=== PATIENT | female | born 1975 | race Caucasian/White ===

== ENCOUNTER → 2016-04-12 | Outpatient (CLI) | payer OTHER | LOC: RAD 16:33 | DX: M54.5 Low back pain (principal); M53.3 Sacrococcygeal disorders, not elsewhere classified ==

== ENCOUNTER → 2017-11-30 | Outpatient (CLI) | payer BC ==
[2017-11-30 15:07] LABS: EOS # 0.3 (0.04-0.40); EOS % 3.8 % (1.0-5.0); HEMATOCRIT 39.1 % (37.0-47.0); LYMPH# 2.1 (1.50-4.00); MEAN CELL VOLUME 88 fl (78-100); MEAN CORPUSCULAR HEMOGLOBIN 29 pg (27-31); MEAN CORPUSCULAR HGB CONC 33 g/dL (33-37); MONO # 0.6 (0.20-0.80); NEU # 5.9 (1.40-6.50); PLATELET COUNT 277 K/mm3 (130-400); RED BLOOD COUNT 4.45 M/mm3 (4.10-5.30); RED CELL DISTRIBUTION WIDTH 12.9 % (11.5-14.5); WHITE BLOOD COUNT 8.9 K/mm3 (4.8-10.8)
[2017-11-30 23:30] LABS: HEPATITIS B CORE AB TOTAL Negative (()); HEPATITIS B SURFACE ANTIGEN Negative (Negative); HEPATITIS C VIRUS ANTIBODY Negative (Negative)
== END ==
LOC: LAB 14:33
PROVIDERS: Physician Assistant
DX: Z79.899 Other long term (current) drug therapy (principal)

== ENCOUNTER → 2018-09-24 | Outpatient (CLI) | payer BC ==
[2018-09-24 11:09] LABS: BASO # 0.1 (0.02-0.10); EOS # 0.2 (0.04-0.40); EOS % 2.9 % (1.0-5.0); HEMATOCRIT 39.1 % (37.0-47.0); HEMOGLOBIN 12.5 g/dL (12.5-16.0); LYMPH# 1.6 (1.50-4.00); MEAN CELL VOLUME 91 fl (78-100); MEAN CORPUSCULAR HEMOGLOBIN 29 pg (27-31); MEAN CORPUSCULAR HGB CONC 32 g/dL (33-37); MEAN PLATELET VOLUME 9.1 fl (7.4-10.4); MONO # 0.5 (0.20-0.80); NEU # 3.7 (1.40-6.50); PLATELET COUNT 333 K/mm3 (130-400); RED BLOOD COUNT 4.31 M/mm3 (4.10-5.30); RED CELL DISTRIBUTION WIDTH 13.2 % (11.5-14.5); WHITE BLOOD COUNT 6.1 K/mm3 (4.8-10.8)
[2018-09-24 11:18] LABS: POTASSIUM 4.2 mmol/L (3.5-5.1)
[2018-09-24 11:19] LABS: ALBUMIN 3.9 g/dL (3.5-5.0)
[2018-09-24 11:20] LABS: CALCIUM 9.3 mg/dL (8.3-10.5)
[2018-09-24 11:21] LABS: TOTAL PROTEIN 7.6 g/dL (6.4-8.3)
[2018-09-24 11:23] LABS: TOTAL BILIRUBIN 0.4 mg/dL (0.2-1.2)
== END ==
LOC: LAB 10:59
PROVIDERS: Family Medicine
DX: Z00.00 Encounter for general adult medical examination without abnormal findings (principal); E78.5 Hyperlipidemia, unspecified

== ENCOUNTER → 2019-07-02 | Outpatient (CLI) | payer BC | LOC: LAB 09:27 | DX: N39.0 Urinary tract infection, site not specified (principal) ==

== ENCOUNTER 2019-07-29 08:19 | Emergency (ER) | payer BC ==
[2019-07-29] MEDS ORDERED: THE MEDICINE SH PO (08:39)
[2019-07-29] MEDS ORDERED: APRI 0.15 MG-0.1 TAB PO (08:39)
[2019-07-29] MEDS ORDERED: FLUOXETINE40 MG PO (08:39)
[2019-07-29 09:03] LABS: EOS # 0.3 (0.04-0.40); EOS % 3.9 % (1.0-5.0); HEMATOCRIT 37.9 % (37.0-47.0); HEMOGLOBIN 11.9 g/dL (12.5-16.0); LYMPH# 1.5 (1.50-4.00); MEAN CELL VOLUME 91 fl (78-100); MEAN CORPUSCULAR HEMOGLOBIN 28 pg (27-31); MEAN CORPUSCULAR HGB CONC 31 g/dL (33-37); MEAN PLATELET VOLUME 9.5 fl (7.4-10.4); MONO # 0.8 (0.20-0.80); NEU # 4.7 (1.40-6.50); PLATELET COUNT 293 K/mm3 (130-400); RED BLOOD COUNT 4.19 M/mm3 (4.10-5.30); WHITE BLOOD COUNT 7.4 K/mm3 (4.8-10.8)
[2019-07-29 09:05] LABS: URINE APPEARANCE HAZY; URINE BILIRUBIN NEGATIVE (NEGATIVE); URINE BLOOD NEGATIVE (NEGATIVE); URINE COLOR YELLOW; URINE GLUCOSE NEGATIVE (NEGATIVE); URINE KETONE NEGATIVE (NEGATIVE); URINE LEUKOCYTE ESTERASE NEGATIVE (NEGATIVE); URINE NITRATE NEGATIVE (NEGATIVE); URINE PROTEIN(semi-quant) NEGATIVE (NEGATIVE); URINE UROBILINOGEN NORMAL (NORMAL)
[2019-07-29 09:06] LABS: URINE MUCUS PRESENT (NOT PRESENT); URINE WBC 0-1 /hpf (0-3)
[2019-07-29 09:07] LABS: POTASSIUM 3.8 mmol/L (3.5-5.1)
[2019-07-29 09:08] LABS: CALCIUM 8.8 mg/dL (8.3-10.5)
[2019-07-29 09:09] LABS: TOTAL PROTEIN 6.9 g/dL (6.4-8.3)
[2019-07-29 09:11] LABS: TOTAL BILIRUBIN 0.4 mg/dL (0.2-1.2)
[2019-07-29] MEDS ORDERED: IBU800 M1 PO (11:06)
[2019-07-29] MEDS ORDERED: NORCO 325 MG-51 TA1 PO (11:06)
[2019-07-29] MEDS ORDERED: ZOFRAN4 M2 PO (11:06)
[2019-07-29 11:09] VITALS: BP 152/69
== END 2019-07-29 11:25 | disposition home or self-care (01) ==
LOC: ED 08:19
PROVIDERS: Nurse Practitioner Primary Care
DX: N20.0 Calculus of kidney (principal); F32.9 Major depressive disorder, single episode, unspecified; Z88.0 Allergy status to penicillin; Z88.2 Allergy status to sulfonamides
CPT/HCPCS: J1885; J2270; J2405; Q9967

== ENCOUNTER → 2019-12-17 | Outpatient (CLI) | payer BC ==
[~2019-12-17] MED LIST: APRI 0.15 MG-0.1 TAB PO; FLUOXETINE40 MG PO; IBU800 M1 PO; NORCO 325 MG-51 TA1 PO; THE MEDICINE SH PO; ZOFRAN4 M2 PO
== END ==
LOC: LAB 10:58
DX: R51.9 Headache, unspecified (principal); R53.83 Other fatigue; Z20.828 Contact with and (suspected) exposure to other viral communicable diseases

== ENCOUNTER → 2021-02-22 | Outpatient (CLI) | payer BC ==
[2021-02-22 18:04] LABS: URINE APPEARANCE CLEAR; URINE BILIRUBIN NEGATIVE (NEGATIVE); URINE BLOOD NEGATIVE (NEGATIVE); URINE COLOR YELLOW; URINE GLUCOSE NEGATIVE (NEGATIVE); URINE KETONE NEGATIVE (NEGATIVE); URINE LEUKOCYTE ESTERASE NEGATIVE (NEGATIVE); URINE MUCUS PRESENT (NOT PRESENT); URINE NITRATE NEGATIVE (NEGATIVE); URINE PROTEIN(semi-quant) TRACE (NEGATIVE); URINE UROBILINOGEN NORMAL (NORMAL); URINE WBC 0-1 /hpf (0-3)
== END ==
LOC: LAB 17:01
PROVIDERS: Family Medicine
DX: N92.5 Other specified irregular menstruation (principal)

== ENCOUNTER → 2021-04-05 | Outpatient (CLI) | payer BC | LOC: LAB 17:27 | DX: J02.9 Acute pharyngitis, unspecified (principal) ==

== ENCOUNTER → 2023-08-14 | Outpatient (CLI) | payer BC ==
[2023-08-14 14:22] LABS: BASO # 0.04 K/mm3 (0.02-0.10); EOS # 0.37 K/mm3 (0.04-0.40); EOS % 3.8 % (1.0-5.0); HEMATOCRIT 36.4 % (37.0-47.0); HEMOGLOBIN 11.8 g/dL (12.5-16.0); LYMPH# 1.89 K/mm3 (1.50-4.00); MEAN CELL VOLUME 89 fl (78-100); MEAN CORPUSCULAR HEMOGLOBIN 29 pg (27-31); MEAN CORPUSCULAR HGB CONC 32 g/dL (33-37); MEAN PLATELET VOLUME 8.9 fl (7.4-10.4); MONO # 0.71 K/mm3 (0.20-0.80); PLATELET COUNT 286 K/mm3 (130-400); RED BLOOD COUNT 4.09 M/mm3 (4.10-5.30); RED CELL DISTRIBUTION WIDTH 14.6 % (11.5-14.5); WHITE BLOOD COUNT 9.6 K/mm3 (4.8-10.8)
[2023-08-14 14:31] LABS: ALBUMIN 3.9 g/dL (3.5-5.0)
[2023-08-14 14:32] LABS: CALCIUM 9.5 mg/dL (8.3-10.5)
[2023-08-14 14:33] LABS: TOTAL PROTEIN 6.9 g/dL (6.4-8.3)
[2023-08-14 14:35] LABS: TOTAL BILIRUBIN 0.2 mg/dL (0.2-1.2)
== END ==
LOC: LAB 14:06
PROVIDERS: Family Medicine
DX: N92.1 Excessive and frequent menstruation with irregular cycle (principal); E78.5 Hyperlipidemia, unspecified; E03.9 Hypothyroidism, unspecified; E55.9 Vitamin D deficiency, unspecified

== ENCOUNTER → 2023-11-30 | Outpatient (CLI) | payer OTHER | LOC: RAD 10:31 | DX: R05.9 Cough, unspecified (principal) ==

== ENCOUNTER → 2023-12-10 | Outpatient (CLI) | payer OTHER ==
[2023-12-10 13:46] LABS: BASO # 0.07 K/mm3 (0.02-0.10); EOS # 1.15 K/mm3 (0.04-0.40); HEMATOCRIT 41.8 % (37.0-47.0); HEMOGLOBIN 13.4 g/dL (12.5-16.0); LYMPH# 2.34 K/mm3 (1.50-4.00); MEAN CELL VOLUME 94 fl (78-100); MEAN CORPUSCULAR HEMOGLOBIN 30 pg (27-31); MEAN CORPUSCULAR HGB CONC 32 g/dL (33-37); MONO # 1.06 K/mm3 (0.20-0.80); NEU # 8.08 K/mm3 (1.40-6.50); PLATELET COUNT 270 K/mm3 (130-400); RED BLOOD COUNT 4.46 M/mm3 (4.10-5.30); RED CELL DISTRIBUTION WIDTH 13.4 % (11.5-14.5); WHITE BLOOD COUNT 12.7 K/mm3 (4.8-10.8)
== END ==
LOC: LAB 13:36
PROVIDERS: Family Medicine
DX: R06.00 Dyspnea, unspecified (principal)

== ENCOUNTER → 2023-12-17 | Outpatient (CLI) | payer OTHER ==
[2023-12-17 18:35] LABS: BASO # 0.08 K/mm3 (0.02-0.10); EOS # 1.69 K/mm3 (0.04-0.40); EOS % 12.4 % (1.0-5.0); HEMOGLOBIN 13.2 g/dL (12.5-16.0); LYMPH# 2.93 K/mm3 (1.50-4.00); MEAN CELL VOLUME 92 fl (78-100); MEAN CORPUSCULAR HEMOGLOBIN 31 pg (27-31); MEAN CORPUSCULAR HGB CONC 33 g/dL (33-37); MEAN PLATELET VOLUME 9.1 fl (7.4-10.4); NEU # 8.06 K/mm3 (1.40-6.50); PLATELET COUNT 298 K/mm3 (130-400); RED BLOOD COUNT 4.33 M/mm3 (4.10-5.30); RED CELL DISTRIBUTION WIDTH 13.3 % (11.5-14.5); WHITE BLOOD COUNT 13.7 K/mm3 (4.8-10.8)
== END ==
LOC: LAB 18:23
PROVIDERS: Nurse Practitioner Family
DX: J06.9 Acute upper respiratory infection, unspecified (principal)

== ENCOUNTER 2023-12-21 16:20 | Emergency (ER) | payer OTHER ==
[~2023-12-21 16:20] MED LIST changes: -PRILOSEC 20MG20 MG PO
[2023-12-21] MEDS ORDERED: Iohexol 350 - 100 ML VIAL IV ONE (16:28)
[2023-12-21] MEDS ORDERED: PRILOSEC 20MG20 MG PO (17:38)
[2023-12-21] MEDS ORDERED: Triamcinolone 40 MG/ML 1 ML VIAL IM ONE (17:45)
[2023-12-21 17:58] VITALS: BP 113/87
== END 2023-12-21 18:33 | disposition home or self-care (01) ==
LOC: ED 16:20
DX: R79.89 Other specified abnormal findings of blood chemistry (principal); J98.4 Other disorders of lung; K21.9 Gastro-esophageal reflux disease without esophagitis
CPT/HCPCS: J3301; Q9967

== ENCOUNTER → 2023-12-21 | Outpatient (CLI) | payer OTHER ==
[~2023-12-21] MED LIST changes: +PRILOSEC 20MG20 MG PO
[2023-12-21 12:34] LABS: BASO # 0.08 K/mm3 (0.02-0.10); EOS # 1.36 K/mm3 (0.04-0.40); EOS % 15.2 % (1.0-5.0); HEMATOCRIT 41.5 % (37.0-47.0); HEMOGLOBIN 13.6 g/dL (12.5-16.0); LYMPH# 1.67 K/mm3 (1.50-4.00); MEAN CELL VOLUME 93 fl (78-100); MEAN CORPUSCULAR HEMOGLOBIN 31 pg (27-31); MEAN CORPUSCULAR HGB CONC 33 g/dL (33-37); MONO # 0.52 K/mm3 (0.20-0.80); NEU # 5.29 K/mm3 (1.40-6.50); PLATELET COUNT 299 K/mm3 (130-400); RED BLOOD COUNT 4.45 M/mm3 (4.10-5.30); RED CELL DISTRIBUTION WIDTH 13.4 % (11.5-14.5); WHITE BLOOD COUNT 8.9 K/mm3 (4.8-10.8)
[2023-12-21 12:59] LABS: D-DIMER 1.35 mg/L FEU (0.15-0.50)
[2023-12-21 16:20] LABS: ALBUMIN 4.1 g/dL (3.5-5.0)
[2023-12-21 16:23] LABS: TOTAL PROTEIN 6.7 g/dL (6.4-8.3)
[2023-12-21 16:25] LABS: TOTAL BILIRUBIN 0.3 mg/dL (0.2-1.2)
== END ==
LOC: LAB 12:23
PROVIDERS: Nurse Practitioner
DX: D50.9 Iron deficiency anemia, unspecified (principal); R06.09 Other forms of dyspnea; R53.81 Other malaise

== ENCOUNTER → 2024-03-12 | Outpatient (CLI) | payer OTHER ==
[~2024-03-12] MED LIST changes: +PRILOSEC 20MG20 MG PO
[2024-03-12 23:49] LABS: FOLLICLE STIMULATING HORMONE 7.5 mIU/mL (()); LUTENIZING HORMONE 7.6 mIU/mL (()); PROGESTERONE <0.1 ng/mL (()); TESTOSTERONE 29 ng/dL (13-36)
== END ==
LOC: LAB 16:39
PROVIDERS: Family Medicine
DX: D50.9 Iron deficiency anemia, unspecified (principal); N91.1 Secondary amenorrhea